=== PATIENT | male | born 1955 | race Caucasian/White ===

== ENCOUNTER 2016-08-25 01:25 | Emergency (ER) | payer BC, OTHER ==
[2016-08-25 02:00] VITALS: BP 148/81; PULSE 75; TEMP 98.7; BMI 38.7
--- NOTE | 2016-08-25 02:24 | PDOC ---
History of Present Illness - General History Source: Patient <Sen Nelson - Last Filed: 08/25/16 02:49> - General History Source: Patient Exam Limitations: No Limitations - History of Present Illness Initial Comments: 08/25/16 03:05 The patient is a 60 year old male with a significant past medical history of hypertension and hyperlipidemia, who presents to the ER with a generalized rash in the bilateral lower extremities, trunk, and bilateral upper extremities for a few hours. Patient states he was in his usual state of health when he fell asleep tonight. He reports waking up tonight with itchy rash on the extremities. Patient also noticed hoarseness in the throat for which he comes to the ER. On interview, patient says his rash is no longer itchy. Patient states he went to a new [facility] today. 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 PCP: Dr Cartagena <Sheree Reynolds - Last Filed: 08/25/16 03:07> - General Chief Complaint: Allergic Reaction Stated Complaint: ALLERGIC REACTION Time Seen by Provider: 08/25/16 02:09 Past History - Past Medical History HTN: Yes Hypercholesterolemia: Yes - Psycho/Social/Smoking Cessation Hx Anxiety: No Suicidal Ideation: No Smoking History: Never smoked Have you smoked in the past 12 months: No If you are a former smoker, when did you quit?: 20 YEARS Information on smoking cessation initiated: No Hx Alcohol Use: No Drug/Substance Use Hx: No Substance Use Type: None <Sen Nelson - Last Filed: 08/25/16 02:49> <Sheree Reynolds - Last Filed: 08/25/16 03:07> - Past Medical History Allergies/Adverse Reactions: Allergies Allergy/AdvReac Type Severity Reaction Status Date / Time No Known Allergies Allergy Verified 08/25/16 01:57 Home Medications: Ambulatory Orders Amlodipine Besylate [Norvasc -] 5 mg PO DAILY 11/06/14 Atorvastatin Ca [Lipitor -] 10 mg PO DAILY 11/06/14 Diphenhydramine HCl [Benadryl Capsules -] 25 mg PO TID #30 capsule 08/25/16 Loratadine [Claritin] 10 mg PO DAILY #30 tablet 08/25/16 Methylprednisolone [Medrol Dose Feng] 4 mg PO ASDIR #21 tablet 08/25/16 Review of Systems - Review of Systems Comments:: 08/25/16 03:05 CONSTITUTIONAL: Absent: fever, no chills, no fatigue EYES: Absent: visual changes ENT: Absent: ear pain, no sore throat CARDIOVASCULAR: Absent: chest pain, no palpitations RESPIRATORY: Absent: cough, no SOB GI: Absent: abdominal pain, no nausea, no vomiting, no constipation, no diarrhea GENITOURINARY: Absent: dysuria, no frequency, no hematuria MUSCULOSKELETAL: Absent: back pain, no arthralgia, no myalgia SKIN: Present: (+) rash on bilateral upper and lower extremities and trunk Absent: rash NEURO: Absent: headache <Uts,Sheree - Last Filed: 08/25/16 03:07> *Physical Exam - Vital Signs Last Vital Signs Temp Pulse Resp BP Pulse Ox 98.7 F 75 20 148/81 100 08/25/16 01:57 08/25/16 01:57 08/25/16 01:57 08/25/16 01:57 08/25/16 01:57 <Sen Nelson - Last Filed: 08/25/16 02:49> - Vital Signs Last Vital Signs Temp Pulse Resp BP Pulse Ox 98.7 F 75 20 148/81 100 08/25/16 01:57 08/25/16 01:57 08/25/16 01:57 08/25/16 01:57 08/25/16 01:57 - Physical Exam Comments: 08/25/16 03:06 GENERAL: Well-appearing, well-nourished. No apparent distress. HEENT: Normocephalic, atraumatic. PERRL, EOM intact. CARDIOVASCULAR: Normal S1, S2. Regular rate and rhythm. PULMONARY: Clear to auscultation bilaterally. ABDOMEN: Soft, non-distended, non-tender. EXTREMITIES: Normal ROM in all four extremities. No gross deformities. SKIN: Diffuse urticaria in arms, legs, chest, and trunk NEUROLOGICAL: No focal neurological deficits. <[facility],Sheree - Last Filed: 08/25/16 03:07> ED Treatment Course - Medications Given in the ED: ED Medications Discontinued Medications Generic Name Dose Route Start Last Admin Trade Name Freq PRN Reason Stop Dose Admin Dexamethasone Sodium Phosphate 10 mg 08/25/16 02:28 08/25/16 02:45 Decadron Injection - IM 08/25/16 02:29 10 mg ONCE ONE Administration Diphenhydramine HCl 25 mg 08/25/16 02:49 08/25/16 03:01 Benadryl - PO 08/25/16 02:50 25 mg ONCE ONE Administration <Sheree Reynolds - Last Filed: 08/25/16 03:07> Medical Decision Making - Medical Decision Making 08/25/16 02:49 Dr. Nelson: The scribe's documentation has been prepared under my direction and personally reviewed by me in its entirery. I confirm that the note above accurately reflects all work, treatment, procedures, and medical decision making performed by me. <Sen Nelson - Last Filed: 08/25/16 02:49> *DC/Admit/Observation/Transfer - Discharge Dispostion Admit: No <Sen Nelson - Last Filed: 08/25/16 02:49> - Attestations Scribe Attestion: 08/25/16 03:06 Documentation prepared by Sheree Reynolds, acting as medical officer psychiatry for Sen Nelson DO. <Sheree Reynolds - Last Filed: 08/25/16 03:07> Diagnosis at time of Disposition: Allergic reaction - Prescriptions Prescriptions: Diphenhydramine HCl [Benadryl Capsules -] 25 mg PO TID #30 capsule Loratadine [Claritin] 10 mg PO DAILY #30 tablet Methylprednisolone [Medrol Dose Feng] 4 mg PO ASDIR #21 tablet - Referrals Referrals: Luis Cartagena MD [Primary Care Provider] -
[2016-08-25] MEDS ORDERED: DEXAMETHASONE SOD PHOSPHATE 10 MG/1 ML VIAL IM ONE (02:28)
[2016-08-25] MEDS ORDERED: DEXAMETHASONE SOD PHOSPHATE 10 MG/1 ML VIAL ONE (02:42)
[2016-08-25] MEDS ORDERED: diphenhydrAMINE HCL 25 MG CAPSULE (FP) PO ONE ×2 (02:49→03:00)
== END 2016-08-25 03:09 | disposition home or self-care (01) ==
LOC: JER 01:25
PROC: 3E0233Z Introduction of Anti-inflammatory into Muscle, Percutaneous Approach (ICD-10-PCS; principal; 2016-08-25)
DX: L50.0 Allergic urticaria (principal); T78.40XA Allergy, unspecified, initial encounter
CPT/HCPCS: 99282-25